=== PATIENT | male | born 1945 | race Caucasian/White ===

== ENCOUNTER 2017-01-09 00:43 | Emergency (ER) | payer MEDICARE, OTHER ==
[2017-01-09 00:50] VITALS: BP 137/96
--- NOTE | 2017-01-09 00:59 | EDM.PDOC ---
ED HPI Skin/Rash - General Chief Complaint: Laceration Stated Complaint: [facility] Time Seen by Provider: 01/09/17 01:02 Source: Reports: Patient, EMS, RN notes reviewed History Limitations: Reports: No limitations - History of Present Illness INITIAL COMMENTS - FREE TEXT/NARRATIVE: EMS arrival from [place] where patient has been staying for a episode of alcohol intoxication Chief complaint Laceration to face, head injury HPI 71-year-old male who is going to be discharged later this morning, had nightmare and woke up after having stumbled and pain with his legs up in the bed she says it. No vomiting. No recall of the fall However he does behavior normally now, no vomiting no nausea. Laceration to the left orbit area. No loss of vision. No dizziness. 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, Dressing(s) - Related Data Allergies Allergy/AdvReac Type Severity Reaction Status Date / Time lisinopril [From Prinivil] Allergy Cough Verified 01/09/17 00:50 Home Meds: Ambulatory Orders Medication Instructions Recorded Confirmed Omeprazole 20 mg PO DAILY 01/09/17 01/09/17 Simvastatin [Zocor] 20 mg PO BEDTIME 01/09/17 01/09/17 cloNIDine HCl [Catapres] 0.1 mg PO DAILY 01/09/17 01/09/17 ED ROS GENERAL - Review of Systems Review Of Systems: See Below Constitutional: Reports: no symptoms HEENT: Reports: No symptoms Respiratory: Reports: No Symptoms Cardiovascular: Reports: No symptoms GI/Abdominal: Reports: No symptoms Skin: Reports: wound (laceration to left orbit) Neurological: Reports: No Symptoms ED EXAM, SKIN/RASH Exam: See Below Exam Limited By: No limitations General Appearance: alert, no apparent distress, other (pleasant alert and laughing, vital signs are normal apart from mild elevation of blood pressure) Eye Exam: left eye: periorbital changes (laceration of the lateral left upper and lower eyelids, 3.5 cm total), bilateral eye: normal inspection (of globe and cornea) Ears: normal external exam, hearing grossly normal Nose: normal inspection Throat/Mouth: Normal inspection, Normal voice Head: facial swelling (left orbit with laceration) Neck: normal inspection, non-tender Respiratory/Chest: no respiratory distress Cardiovascular: normal peripheral pulses Neurological: alert, oriented, no motor/sensory deficits Psychiatric: normal affect, normal mood Skin: Warm, Dry, Wound/incision (as noted above) ED SKIN PROCEDURES - Laceration/Wound Repair Right Other Lac/wound length in cm: 3.5 (left upper and lower eyelids, Y-shaped, lateral aspect) Appearance: subcutaneous, irregular, clean Distal NVT: neuro & vascular intact, no tendon injury Anesthetic type: local Local anesthesia - Lidocaine (Xylocaine): 1% with epi Local anesthetic volume: 2cc Skin prep: other (tapwater) Exploration/Debridement/Repair: wound explored, no foreign material found Closed with: sutures Suture size: other (5-0) # of sutures: 7 Suture type: interrupted, simple, other (fast gut) Sterile dressing applied: nurse Tetanus status addressed: Yes (up to date) Complications: No Progress/Comments: tolerated well without complication Course - Vital Signs Last Recorded V/S: Last Vital Signs Temp 36.1 C 01/09/17 00:45 Pulse 67 01/09/17 00:45 Resp 16 01/09/17 00:45 BP 137/96 H 01/09/17 00:45 Pulse Ox 0 L 01/09/17 00:45 - Orders/Labs/Meds Meds: Medications Discontinued Medications Generic Name Dose Route Start Last Admin Trade Name Brook PRN Reason Stop Dose Admin Lidocaine/Epinephrine 10 ml 01/09/17 01:08 01/09/17 01:17 Xylocaine 1% With Epinephrine 1:100,000 INJECT 01/09/17 01:09 10 ml ONETIME STA Administration - Re-Assessments/Exams Free Text/Narrative Re-Assessment/Exam: 01/09/17 01:12 71-year-old male who is in a rehabilitation facility, stumbled when he woke up during a nightmare, fell to the floor and sustained a laceration to his left orbit, patient is alert and there is no evidence of concussion or intercerebral bleed or infection. Laceration, see procedure note Discharge Departure - Departure Time of Disposition: 01:33 Disposition: DC/Tfer to Inpt Rehab Fac 62 Condition: good Clinical Impression: Laceration of left eyelid and periocular area Qualifiers: Encounter type: initial encounter Qualified Code(s): S01.112A - Laceration without foreign body of left eyelid and periocular area, initial encounter Head injury, acute, without loss of consciousness Qualifiers: Encounter type: initial encounter Qualified Code(s): S09.90XA - Unspecified injury of head, initial encounter Instructions: Stitches, Cl, or Adhesive Wound Closure, [id number] Referrals: PCP,None [Primary Care Provider] - Forms: ED Department Discharge Additional Instructions: your cut was stitched with 7 stitches of rapid dissolving gut. this will dissolve within a week and does not need to be removed. You have a black eye which will take at least 2 weeks to clear up Get rechecked if you develop repeated vomiting, fever, severe headaches or troubles with balance or walking
[2017-01-09] MEDS ORDERED: Lidocaine 1% with EPINEPHrine 1:100,000 50 ML MDV INJECT STA (01:08)
== END 2017-01-09 02:30 ==
LOC: JP.ED 00:43
DX: S01.112A Laceration without foreign body of left eyelid and periocular area, initial encounter (principal); S09.90XA Unspecified injury of head, initial encounter; Z79.899 Other long term (current) drug therapy; Z88.8 Allergy status to other drugs, medicaments and biological substances; W06.XXXA Fall from bed, initial encounter
CPT/HCPCS: 12013; 99284-25